=== PATIENT | male | born 1945 ===

== ENCOUNTER 2018-02-18 08:37 | Emergency (ER) | payer MEDICARE ==
[2018-02-18 08:50] VITALS: PULSE 78; RESP 18; TEMP 98.1; O2SAT 99
[2018-02-18 08:51] VITALS: BMI 20.8
[2018-02-18 08:56] VITALS: BP 138/83
--- NOTE | 2018-02-18 09:02 | ED PDOC ---
HPI: Allergic Reaction Time Seen by Provider: 02/18/18 08:54 Chief Complaint (Nursing): Allergic Reaction History Per: Patient Onset/Duration Of Symptoms: Days (2) Current Symptoms Are (Timing): Still Present Context: Other (plants) Associated Symptoms: Skin Rash, Itching Home/EMS Treatment: None Severity: Mild Additional Complaint(s): Facial redness and itching after working outside yesterady in yard. Came into contact with plants in yard. Denies SOB or throat swelling Past Medical History Vital Signs: Last Vital Signs Temp 98.1 F 02/18/18 08:49 Pulse 78 02/18/18 08:49 Resp 18 02/18/18 08:49 BP 138/83 02/18/18 08:53 Pulse Ox 99 02/18/18 08:49 - Medical History PMH: No Chronic Diseases - Family History Family History: States: Unknown Family Hx - Home Medications Home Medications: Ambulatory Orders Medication Instructions Recorded oxyCODONE/Acetaminophen [Percocet 1 tab PO Q4 PRN #0 tab 05/23/14 5/325 mg Tab] Cetirizine HCl [Zyrtec] 10 mg PO DAILY #10 capsule 02/18/18 Famotidine [Pepcid] 20 mg PO Q12 #20 tab 02/18/18 Prednisone 50 mg PO DAILY #5 tab 02/18/18 - Allergies Allergies/Adverse Reactions: Allergies Allergy/AdvReac Type Severity Reaction Status Date / Time No Known Allergies Allergy Verified 02/18/18 08:53 Review of Systems Constitutional: Negative for: Fever ENT: Negative for: Throat Swelling Respiratory: Negative for: Shortness of Breath Skin: Positive for: Rash Physical Exam - Physical Exam Appears: Positive for: Non-toxic, No Acute Distress Skin: Positive for: Rash (erythemetous rash involving face. No other rash noted. ) ENT: Negative for: Pharyngeal Erythema, Tonsillar Swelling Neck: Positive for: Normal Cardiovascular/Chest: Positive for: Regular Rate, Rhythm Respiratory: Positive for: Normal Breath Sounds. Negative for: Wheezing, Respiratory Distress - ECG O2 Sat by Pulse Oximetry: 99 Disposition - Clinical Impression Clinical Impression: Allergic reaction, Contact allergic reaction - Patient ED Disposition Is Patient to be Admitted: No Counseled Patient/Family Regarding: Diagnosis, Need For Followup, Rx Given - Disposition Referrals: [facility] [Outside] Disposition: Routine/Home Disposition Time: 09:03 Condition: FAIR Prescriptions: Cetirizine HCl [Zyrtec] 10 mg PO DAILY #10 capsule Famotidine [Pepcid] 20 mg PO Q12 #20 tab Prednisone 50 mg PO DAILY #5 tab Instructions: Contact Dermatitis (DC) Print Language: DUTCH
== END 2018-02-18 09:25 | disposition home or self-care (01) ==
LOC: H.ER 08:37
DX: T78.49XA Other allergy, initial encounter (principal)